=== PATIENT | female | born 1955 | race African-American/Black ===

== ENCOUNTER 2017-09-21 16:42 | Emergency (ER) | payer OTHER ==
[~2017-09-21] VITALS: Ht 162.6 cm; Wt 70.3 kg
[2017-09-21] MEDS ORDERED: NORCO 5-325 TA1 EACH PO (17:32)
[2017-09-21] MEDS ORDERED: PREDNISONE 20 M20 MG PO (17:44)
== END 2017-09-21 18:23 | disposition home or self-care (01) ==
LOC: ER 16:42
DX: S16.1XXA Strain of muscle, fascia and tendon at neck level, initial encounter (principal); M25.512 Pain in left shoulder; X50.1XXA Overexertion from prolonged static or awkward postures, initial encounter; Y93.89 Activity, other specified; Y92.89 Other specified places as the place of occurrence of the external cause; Y99.8 Other external cause status